=== PATIENT | female | born 1995 | race Two or more races ===

== ENCOUNTER 2024-03-05 13:46 | Emergency (ER) | payer MEDICAID ==
[~2024-03-05] VITALS: Ht 152.4 cm; Wt 88.8 kg
[2024-03-05 13:59] VITALS: BP 112/72; PULSE 110; RESP 18; O2SAT 98
== END 2024-03-05 19:26 | disposition left against medical advice (07) ==
LOC: ER 13:46
DX: M79.675 Pain in left toe(s) (principal); Z53.21 Procedure and treatment not carried out due to patient leaving prior to being seen by health care provider